=== PATIENT | male | born 1980 | race Caucasian/White ===

== ENCOUNTER 2017-10-04 08:36 | Emergency (ER) | payer SELFPAY | END 2017-10-04 10:30 | disposition home or self-care (01) | LOC: D.ER 08:36 | DX: K02.9 Dental caries, unspecified (principal); K08.89 Other specified disorders of teeth and supporting structures; K05.10 Chronic gingivitis, plaque induced; E11.9 Type 2 diabetes mellitus without complications ==

== ENCOUNTER 2019-12-18 14:54 | Emergency (ER) | payer SELFPAY ==
[~2019-12-18] VITALS: Ht 177.8 cm; Wt 90.9 kg
[2019-12-18 15:01] VITALS: BP 148/90; Ht 177.8 cm; Wt 90.9 kg
[2019-12-18] MEDS ORDERED: CLINDAMYCIN HC300 MG PO (17:01)
[2019-12-18] MEDS ORDERED: HYDROCODON-ACE1 EA10 PO (17:01)
== END 2019-12-18 17:30 | disposition home or self-care (01) ==
LOC: D.ER 14:54
DX: S62.603A Fracture of unspecified phalanx of left middle finger, initial encounter for closed fracture (principal); S61.213A Laceration without foreign body of left middle finger without damage to nail, initial encounter; W22.8XXA Striking against or struck by other objects, initial encounter; Y93.9 Activity, unspecified; Y92.9 Unspecified place or not applicable